=== PATIENT | female | born 1970 | race Caucasian/White ===

== ENCOUNTER → 2016-08-30 | Outpatient (CLI) | payer OTHER ==
[~2016-08-30] MED LIST: LEVO125T4 PO; META0.52 PO; ORTH7TAB PO
[2016-08-30 07:58] LABS: ALT (GPT) 20 U/L (10-53); ANION GAP 7 MEQ/L (5-15); AST (GOT) 9 U/L (15-37); BICARBONATE 24.9 MEQ/L (21.0-32.0); BLOOD UREA NITROGEN 11 MG/DL (7-18); CHLORIDE 107 MEQ/L (98-107); GLOMERULAR FILTRATION RATE 106 ML/MIN (>89); GLUCOSE,FASTING 110 MG/DL (74-99); SODIUM (NA) 139 MEQ/L (136-145)
[2016-08-30 08:07] LABS: ALKALINE PHOSPHATASE 80 U/L (45-117); HDL CHOLESTEROL 64.4 MG/DL (40.0-60.0); LDL CHOLESTEROL 83 MG/DL (0-99); TOTAL BILIRUBIN ADULT 0.2 MG/DL (0.2-1.0)
[2016-08-30 12:56] LABS: HEMOGLOBIN A1a 1.2 %; HEMOGLOBIN A1b 1.7 %; HEMOGLOBIN Ao 85.7 %; HEMOGLOBIN LA1C 2.1 %; HEMOGLOBIN P3 3.6 %
== END ==
LOC: CLAB 07:05
PROVIDERS: ATTEND Family Medicine
DX: R73.02 Impaired glucose tolerance (oral) (principal); E78.2 Mixed hyperlipidemia; E03.9 Hypothyroidism, unspecified
CPT/HCPCS: 36415; 80053; 80061; 83036; 84443

== ENCOUNTER → 2017-08-29 | Outpatient (CLI) | payer OTHER ==
[2017-08-29 08:43] LABS: ALBUMIN 3.2 GM/DL (3.4-5.0); AST (GOT) 15 U/L (15-37); BICARBONATE 24.1 MEQ/L (21.0-32.0); BLOOD UREA NITROGEN 7 MG/DL (7-18); CALCIUM 8.3 MG/DL (8.5-10.1); CHLORIDE 104 MEQ/L (98-107); CREATININE 0.71 MG/DL (0.50-1.00); GLOMERULAR FILTRATION RATE 88 ML/MIN (>89); GLUCOSE,FASTING 107 MG/DL (74-99); SODIUM (NA) 135 MEQ/L (136-145)
[2017-08-29 08:44] LABS: ALT (GPT) 20 U/L (10-53); CHOLESTEROL 180 MG/DL (120-200); TRIGLYCERIDES 123 MG/DL (42-150)
[2017-08-29 08:53] LABS: ALKALINE PHOSPHATASE 92 U/L (45-117); CHOLESTEROL/ HDL RATIO 3.57 RATIO; HDL CHOLESTEROL 50.4 MG/DL (40.0-60.0); LDL CHOLESTEROL 105 MG/DL (0-99); TOTAL BILIRUBIN ADULT 0.2 MG/DL (0.2-1.0); TOTAL PROTEIN 7.6 GM/DL (6.4-8.2)
[2017-08-29 09:57] LABS: HEMOGLOBIN A1C 5.9 % (4.3-6.0)
== END ==
LOC: CLAB 07:25
PROVIDERS: ATTEND Family Medicine
DX: E03.9 Hypothyroidism, unspecified (principal); E78.2 Mixed hyperlipidemia; R73.02 Impaired glucose tolerance (oral)
CPT/HCPCS: 36415; 80053; 80061; 83036; 84439; 84443

== ENCOUNTER → 2017-10-26 | Outpatient (CLI) | payer OTHER ==
[~2017-10-26] MED LIST changes: +NORE1TAB60 PO; -ORTH7TAB PO
[2017-10-26 09:45] LABS: FREE T4 1.22 NG/DL (0.76-1.46)
== END ==
LOC: CLAB 08:23
PROVIDERS: ATTEND Family Medicine
DX: E03.9 Hypothyroidism, unspecified (principal)
CPT/HCPCS: 36415; 84439; 84443